=== PATIENT | female | born 1980 | race Caucasian/White ===

== ENCOUNTER 2020-04-09 03:30 | Emergency (ER) | payer SELFPAY ==
[~2020-04-09] VITALS: Ht 152.4 cm; Wt 61.3 kg
--- OUTSIDE RECORDS SUMMARY | 2020-04-09 03:44 | XMS REPORT ---
Author Author Rosa ROUSSEAU Organization [employer] Address Unknown Phone Unavailable Care Team Providers Care Dance Artist Name Role Phone CAROLYN ROUSSEAU CP Unavailable Allergies, Adverse Reactions, Alerts Substance Reaction Event Type N.K.D.A. Info Not Available Non Drug Allergy Problems Problem Type Condition Code Onset Dates Condition Statu s Assessment Dental caries on smooth surface penetrating into pulp K02.63 Active Assessment Encounter for dental examination Z01.20 Active Medications Medication Code System Code Instructions Start Date End Date Status Dosage Naproxen [facility] [id number] 500 MG Orally every 12 hrs Take two tabs immediately then 1 tablet as needed Procedures Procedure Coding System Code Date PANORAMIC FILM SEE ALSO CODE 77444 CPT-4 D0330 Aug 16, 2015 EXTRAC ERUPTED TOOTH/EXPOSED ROOT CPT-4 D7140 Aug 16, 2015 LTD ORAL EVALUATION - PROBLEM FOCUS CPT-4 D0140 Aug 16, 2015 Vital Signs Date/Time: Aug 16, 2015 Blood Pressure Diastolic 90 mmHg Blood Pressure Systolic 143 mmHg Cardiac Monitoring Heart Rate 97 bpm Results No Known Results Summary Purpose [employer] Submission
--- OUTSIDE RECORDS SUMMARY | 2020-04-09 03:44 | XMS REPORT | Continuity of Care Document ---
Author Organization Unknown Address Unknown Phone Unavailable Allergies There is no data. Medications Medication Packaging Start Date St op Date Route Dosage Sig ZOLOFT 5 ORAL 3030 every mo rning KEFLEX 5 ORAL 1212 4 times a day ZOFRAN 5 ORAL 1010 3 times a day ZITHROMAX 2014 Oral 66 as direc darryl Problems There is no data. Procedures There is no data. Results There is no data. Encounters ACCT No. Visit Date/Time Discharge Status Pt. Type Provider Facility Loc./Unit Complaint [id number] 05/21/2015 12:54:09 05/21/2015 12:5 4:09 DIS Outpatient [id number] 04/30/2015 14:46:42 5 14:46:42 DIS Outpatient [id number] 02/09/2015 13:24:00 Document Registration [id number] 02/09/2015 13:23:56 Document Registration [id number] 02/09/2015 13:23:53 Document Registration [id number] 02/09/2015 13:23:48 Document Registration [id number] 02/09/2015 13:23:44 Document Registration [id number] 02/09/2015 13:23:40 Document Registration [id number] 02/09/2015 13:23:36 Document Registration [id number] 02/09/2015 13:23:21 Document Registration [id number] 01/12/2015 06:55:10 Document Registration [id number] 01/12/2015 06:55:07 Document Registration [id number] 01/12/2015 06:55:03 Document Registration [id number] 01/12/2015 06:54:59 Document Registration [id number] 01/12/2015 06:54:56 Document Registration [id number] 01/08/2015 11:58:13 Document Registration [id number] 01/08/2015 11:58:06 Document Registration [id number] 01/08/2015 11:58:02 Document Registration [id number] 01/08/2015 11:57:58 Document Registration [id number] 01/08/2015 11:57:53 Document Registration [id number] 01/08/2015 11:57:45 Document Registration [id number] 01/08/2015 11:43:01 Document Registration [id number] 01/08/2015 11:42:57 Document Registration [id number] 01/08/2015 11:42:53 Document Registration [id number] 01/08/2015 11:42:49 Document Registration [id number] 01/08/2015 11:42:45 Document Registration [id number] 01/08/2015 11:42:35 Document Registration [id number] 01/08/2015 11:42:30 Document Registration [id number] 01/08/2015 11:42:24 Document Registration [id number] 01/08/2015 11:27:05 Document Registration [id number] 01/08/2015 11:26:58 Document Registration [id number] 01/08/2015 11:26:54 Document Registration [id number] 01/08/2015 11:26:50 Document Registration [id number] 01/08/2015 11:26:47 Document Registration [id number] 08/27/2016 14:40:24 08/27/2016 14:4 0:24 DIS Outpatient [facility]
--- NOTE | 2020-04-09 04:03 | ED Back Pain ---
General Chief Complaint: Back Problems Stated Complaint: BACK PAIN Nursing Triage Note: PT AMBULATE TO ROOM FS02 WITH C/O BACK PAIN. PT REPORTS PAIN BETWEEN SHOULDER BLADES THAT HAS MOVED TO HER LOWER BACK. PT STATES SHE DOES NOT HAVE A PCP AND THAT SHE HAS NOT VISITED THE CLINIC FOR THIS C/O. PT STATES THAT HER TWIN SISTER HAD THE SAME SYMPTOMS THAT TURNED OUT TO BE "MICRO BLOOD CLOTS" IN HER BACK. PT REPORTS HX OF "PANIC ATTACKS". PT REPORTS "WARMTH" IN HER UPPER BACK. Nursing Sepsis Screen: No Definite Risk History of Present Illness Date Seen by Provider: Apr 09, 2020 Time Seen by Provider: 04:01 Initial Comments Pt presents with upper back pain x about 2 weeks. She also reports occasional chest pain and feels short of breath at times. 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 The back pain is worse when she bends a certain way however, she has taken ibuprofen and alleve without relief. Allergies and Home Medications Allergies Coded Allergies: No Known Allergies (Verified Allergy, Unknown, 04/09/20) Patient Home Medication List Home Medication List Reviewed: Yes Review of Systems Constitutional: no symptoms reported EENTM: no symptoms reported Respiratory: No cough; short of breath Cardiovascular: chest pain Gastrointestinal: No abdominal pain, No nausea, No vomiting Genitourinary: no symptoms reported Musculoskeletal: back pain Skin: no symptoms reported Psychiatric/Neurological: No Symptoms Reported Past Ihpmrvw-Lsreej-Yxacgt Hx Patient Social History Alcohol Use: Denies Use Recreational Drug Use: No Smoking Status: Never a Smoker 2nd Hand Smoke Exposure: No Recent Foreign Travel: No Contact w/Someone Who Travel: No Recent Infectious Disease Expo: No Recent Hopitalizations: No Physical Abuse: No Sexual Abuse: No Mistreated: No Fear: No Seasonal Allergies Seasonal Allergies: No Past Medical History Surgeries: No Respiratory: No Cardiac: No Neurological: No Sexually Transmitted Disease: No HIV/AIDS: No Genitourinary: No Gastrointestinal: No Musculoskeletal: No Endocrine: No HEENT: No Cancer: No Psychosocial: Yes Anxiety, PTSD Integumentary: No Blood Disorders: Yes (FACTOR 5) Physical Exam Vital Signs Vital Signs - First Documented 04/09/20 03:40 Temp 37.2 Pulse 107 Resp 17 B/P (MAP) 133/104 (114) O2 Delivery Room Air Capillary Refill : Less Than 3 Seconds Height, Weight, BMI Height: '" Weight: lbs. oz. kg; 26.00 BMI Method: General Appearance: No Apparent Distress, WD/WN, Anxious Neck: Normal Inspection Cardiovascular: Regular Rate, Rhythm Respiratory: Chest Non Tender, Lungs Clear, Normal Breath Sounds Gastrointestinal: No Distended Back: Normal Inspection, No Vertebral Tenderness Extremity: Normal Inspection Neurologic/Psychiatric: Alert, Oriented x3, No Motor/Sensory Deficits Progress/Results/Core Measures Results/Orders Lab Results Laboratory Tests Test 04/09/20 04:10 Range/Units White Blood Count 9.9 4.3-11.0 10^3/uL Red Blood Count 4.71 4.35-5.85 10^6/uL Hemoglobin 14.0 11.5-16.0 G/DL Hematocrit 42 35-52 % Mean Corpuscular Volume 90 80-99 FL Mean Corpuscular Hemoglobin 30 25-34 PG Mean Corpuscular Hemoglobin Concent 33 32-36 G/DL Red Cell Distribution Width 12.2 10.0-14.5 % Platelet Count 288 130-400 10^3/uL Mean Platelet Volume 10.6 H 7.4-10.4 FL Neutrophils (%) (Auto) 48 42-75 % Lymphocytes (%) (Auto) 41 12-44 % Monocytes (%) (Auto) 6 0-12 % Eosinophils (%) (Auto) 4 0-10 % Basophils (%) (Auto) 0 0-10 % Neutrophils # (Auto) 4.8 1.8-7.8 X 10^3 Lymphocytes # (Auto) 4.1 H 1.0-4.0 X 10^3 Monocytes # (Auto) 0.6 0.0-1.0 X 10^3 Eosinophils # (Auto) 0.4 H 0.0-0.3 10^3/uL Basophils # (Auto) 0.0 0.0-0.1 10^3/uL Sodium Level 141 135-145 MMOL/L Potassium Level 4.1 3.6-5.0 MMOL/L Chloride Level 104 98-107 MMOL/L Carbon Dioxide Level 26 21-32 MMOL/L Anion Gap 11 5-14 MMOL/L Blood Urea Nitrogen 10 7-18 MG/DL Creatinine 0.95 0.60-1.30 MG/DL Estimat Glomerular Filtration Rate > 60 BUN/Creatinine Ratio 11 Glucose Level 118 H 70-105 MG/DL Calcium Level 9.6 8.5-10.1 MG/DL Corrected Calcium 8.5-10.1 MG/DL Total Bilirubin 0.3 0.1-1.0 MG/DL Aspartate Amino Transf (AST/SGOT) 18 5-34 U/L Alanine Aminotransferase (ALT/SGPT) 18 0-55 U/L Alkaline Phosphatase 68 40-136 U/L Troponin I < 0.30 <0.30 NG/ML Total Protein 7.1 6.4-8.2 GM/DL Albumin 4.7 H 3.2-4.5 GM/DL My Orders Orders - MEG AMARO MD Cbc With Automated Diff (04/09/20 03:58) Comprehensive Metabolic Panel (04/09/20 03:58) Troponin I Fs (04/09/20 03:58) Ekg-Prn For Chest Pain Or Rhyt (04/09/20 03:58) Ct Angio Chest W (04/09/20 03:58) Ed Iv/Invasive Line Start (04/09/20 03:58) Iohexol Injection (Omnipaque 350 Mg/Ml 1 (04/09/20 04:15) Received Contrast (Hold Metformin- Contr (04/09/20 04:15) Ns (Ivpb) (Sodium Chloride 0.9% Ivpb Bag (04/09/20 04:15) Ekg Tracing (04/09/20 04:16) Medications Given in ED Current Medications Medications Dose Ordered Sig/Maryam Route Start Time Stop Time Status Last Admin Dose Admin Iohexol 150 ml ONCE ONCE IV 04/09/20 04:15 04/09/20 04:16 DC 04/09/20 04:17 125 ML Sodium Chloride 100 ml ONCE ONCE IV 04/09/20 04:15 04/09/20 04:16 DC 04/09/20 04:17 100 ML Vital Signs/I&O 04/09/20 03:40 Temp 37.2 Pulse 107 Resp 17 B/P (MAP) 133/104 (114) O2 Delivery Room Air Blood Pressure Mean: 114 Progress Progress Note : Time: 05:10 Progress Note CTA negative. Troponin and EKG negative. Suspect musculoskeletal pain. Will try Flexeril and Mobic. Ready for discharge. Initial ECG Impression Date: Apr 09, 2020 Initial ECG Impression Time: 04:16 Initial ECG Rate: 64 Initial ECG Rhythm: Normal Sinus Initial ECG Intervals: Normal Initial ECG Impression: Normal Departure Impression Primary Impression: Back pain Disposition: 01 HOME, SELF-CARE Condition: Stable Departure-Patient Inst. Referrals: NO,LOCAL PHYSICIAN (PCP/Family) Primary Care Physician Patient Instructions: Upper Back Pain (DC) Scripts Cyclobenzaprine HCl (Cyclobenzaprine HCl) 10 Mg Tablet 10 MG PO TID PRN for SPASMS, #15 TAB 0 Refills Prov: MEG AMARO MD 04/09/20 Meloxicam (Mobic) 15 Mg Tablet 15 MG PO DAILY PRN PRN for PAIN-MODERATE (5-7), #15 TAB Prov: MEG AMARO MD 04/09/20 MEG AMARO MD Apr 09, 2020 04:03
[2020-04-09] MEDS ORDERED: HOLD METFORMIN - RECEIVED CONTRAST 20 ML VIAL IV SCH (04:15)
[2020-04-09] MEDS ORDERED: IOHEXOL 350 MG/ML 150 ML (OMNIPAQUE 350) VIAL IV ONE (04:15)
[2020-04-09] MEDS ORDERED: NS 100 ML (IVPB) BAG IV ONE (04:15)
[2020-04-09 04:24] LABS: BASOPHILS % (AUTO) 0 % (0-10); EOSINOPHILS % (AUTO) 4 % (0-10); HEMATOCRIT 42 % (35-52); LYMPHOCYTES # (AUTO) 4.1 X 10^3 (1.0-4.0); LYMPHOCYTES % (AUTO) 41 % (12-44); MEAN CORPUSCULAR HEMOGLOBIN 30 PG (25-34); MEAN CORPUSCULAR HGB CONC 33 G/DL (32-36); MEAN CORPUSCULAR VOLUME 90 FL (80-99); MEAN PLATELET VOLUME 10.6 FL (7.4-10.4); MONOCYTES # (AUTO) 0.6 X 10^3 (0.0-1.0); MONOCYTES % (AUTO) 6 % (0-12); NEUTROPHILS # (AUTO) 4.8 X 10^3 (1.8-7.8); NEUTROPHILS % (AUTO) 48 % (42-75); PLATELET COUNT 288 10^3/uL (130-400); RED CELL DISTRIBUTION WIDTH 12.2 % (10.0-14.5); WHITE BLOOD COUNT 9.9 10^3/uL (4.3-11.0)
[2020-04-09 04:25] LABS: EOSINOPHILS # (AUTO) 0.4 10^3/uL (0.0-0.3)
[2020-04-09 04:43] LABS: ALANINE AMINOTRANSFERASE 18 U/L (0-55); ALBUMIN 4.7 GM/DL (3.2-4.5); ALKALINE PHOSPHATASE 68 U/L (40-136); BILIRUBIN,TOTAL 0.3 MG/DL (0.1-1.0); BUN/CREATININE RATIO 11; CALCIUM 9.6 MG/DL (8.5-10.1); CARBON DIOXIDE 26 MMOL/L (21-32); CHLORIDE 104 MMOL/L (98-107); CREATININE SERUM 0.95 MG/DL (0.60-1.30); GFR ESTIMATED > 60; GLUCOSE 118 MG/DL (70-105); POTASSIUM 4.1 MMOL/L (3.6-5.0); SODIUM 141 MMOL/L (135-145); TOTAL PROTEIN 7.1 GM/DL (6.4-8.2)
[2020-04-09] MEDS ORDERED: MELO15TA14 PO (05:15)
[2020-04-09] MEDS ORDERED: CYCL10TA9 PO (05:15)
[2020-04-09 05:24] VITALS: BP 127/88
--- NOTE | 2020-04-09 07:06 | Diagnostic Imaging Report ---
PROCEDURE: CT angiography of the chest with contrast. TECHNIQUE: Multiple contiguous axial images were obtained through the chest after uneventful bolus administration of intravenous contrast. 3D reconstructed CTA MIP acquisitions were also performed. Auto Exposure Controls were utilized during the CT exam to meet ALARA standards for radiation dose reduction. INDICATION: Back pain for 2 weeks between the shoulder blades progressing down the spine. Family history of pulmonary emboli. COMPARISON: None FINDINGS: There is significant motion artifact throughout the exam. The heart is normal in size. There is no pericardial effusion. The pulmonary arteries or diagnostic to the lobar/proximal segmental level. No filling defects are seen to suggest a pulmonary embolus. The aorta appears normal in caliber with no evidence of dissection. Minimal residual thymic tissue is noted. No mediastinal adenopathy is seen. There is no pleural effusion or pneumothorax. No masses or focal consolidation is seen in the lungs. No central endobronchial lesions are seen. Vertebral body heights are preserved. No acute osseous abnormality is seen. Imaged portions of the upper abdomen demonstrate no acute abnormality. IMPRESSION: 1. Motion artifact throughout the exam but no pulmonary embolus is seen. No acute aortic abnormality is seen. Dictated by: Dictated on workstation # [id number]
== END 2020-04-09 05:24 | disposition home or self-care (01) ==
LOC: ER FS 03:35
DX: M54.6 Pain in thoracic spine (principal); D68.2 Hereditary deficiency of other clotting factors
CPT/HCPCS: 36415; 71275; 80053; 84484; 85025; 93005